=== PATIENT | male | born 1980 | race Caucasian/White ===

== ENCOUNTER 2016-07-13 16:21 | Emergency (ER) | payer BC ==
[~2016-07-13] VITALS: Ht 175.3 cm; Wt 72.6 kg
[2016-07-13 17:52] VITALS: BP 154/99
--- NOTE | 2016-07-13 18:20 | PHYS DOC ---
Past Medical History Past Medical History: Other Additional Past Medical Histor: ED, neuropathy, manic bipolar Past Surgical History: Other Additional Past Surgical Histo: hernia surgery, vasectomy, colonoscopy, Alcohol Use: Occasionally Drug Use: Amphetamine, Benzodiazepine, Cocaine, Methamphetamine Adult General Chief Complaint Chief Complaint: OVERDOSE HPI HPI Patient is a 36 year old male who presents after snorting [address] [employer] methamphetamines last night and today. He says that he bought from a dealer, and it burned his nostril and throat when he snorted it, much more then snorting methamphetamines typically does for him. He reports feeling pretty jittery, and weird. He says that he was kind of "out of it" earlier. He denies chest pain or shortness of breath. He wants to know exactly what he snorted or what it may have been cut with. He denies any other acute drug use. Review of Systems Review of Systems Constitutional: Denies fever or chills. Forced feeling anxious and jittery and "weird". Eyes: Denies change in visual acuity, redness, or eye pain HENT: Denies nasal congestion or sore throat Respiratory: Denies cough or shortness of breath Cardiovascular: Chest pain or palpitations. GI: Denies abdominal pain, nausea, vomiting, bloody stools or diarrhea : Denies dysuria or hematuria Musculoskeletal: Denies back pain or joint pain Integument: Denies rash or skin lesions Neurologic: Denies headache, focal weakness or sensory changes Psych: Reports anxiety. Denies hallucinations. Allergies Allergies Allergies Coded Allergies Type Severity Reaction Last Updated Verified trazodone Allergy Severe palpitation 07/13/16 Yes sucralfate Allergy Mild rash 07/13/16 Yes Physical Exam Physical Exam Constitutional: Well developed, well nourished, no acute distress, non-toxic appearance. HENT: Normocephalic, atraumatic, bilateral external ears normal, oropharynx moist, no oral exudates, nose normal. Eyes: PERRLA, EOMI, conjunctiva normal, no discharge. Neck: Normal range of motion, no tenderness, supple, no stridor. Cardiovascular:Heart rate regular rhythm, no murmur Lungs & Thorax: Bilateral breath sounds clear to auscultation Abdomen: Bowel sounds normal, soft, no tenderness, no masses, no pulsatile masses. Skin: Warm, dry, no erythema, no rash. Back: No tenderness, no CVA tenderness. Extremities: No tenderness, no cyanosis, no clubbing, ROM intact, no edema. Neurologic: Alert and oriented X 3, normal motor function, normal sensory function, no focal deficits noted. Psychologic: Affect normal. Appears anxious. Current Patient Data Vital Signs Vital Signs Date Time Temp Pulse Resp B/P Pulse Ox O2 Delivery O2 Flow Rate FiO2 07/13/16 17:52 91 16 154/99 99 Room Air 07/13/16 16:28 98.0 98.0 EKG EKG [] Radiology/Procedures Radiology/Procedures [] Course & Med Decision Making Course & Med Decision Making Pertinent Labs and Imaging studies reviewed. (See chart for details) Slightly tachycardic but vitals are otherwise stable. He is alert and oriented and not hallucinating or psychotic. He looks well otherwise. I informed the patient there is no way for me to know if his drugs were cut with any household products or anything else of this nature. Cheap street drugs or often cut with other drugs, I informed the patient of this. He is stable and looks well otherwise. I advised he stop using drugs, and told him that he should feel back to normal by tomorrow morning. Return precautions were discussed and all questions were answered prior to discharge. Dragon Disclaimer Dragon Disclaimer This electronic medical record was generated, in whole or in part, using a voice recognition dictation system. Departure Departure Impression: Primary Impression: Methamphetamine abuse Disposition: HOME, SELF-CARE Condition: STABLE Referrals: NO PCP (PCP) Patient Instructions: Methamphetamine Abuse, Complications Additional Instructions: Stop using street drugs. He continues and saline nasal spray or in any particular gauge her nose out to help with the burning. Take Tylenol and ibuprofen as needed for pain. Drink lots of fluids and try to get some rest tonight. You should be feeling back to normal by tomorrow. YANE MOSQUERA MD Jul 13, 2016 18:20
== END 2016-07-13 18:49 | disposition home or self-care (01) ==
LOC: ER 16:21
DX: F15.10 Other stimulant abuse, uncomplicated (principal); G62.9 Polyneuropathy, unspecified; F31.9 Bipolar disorder, unspecified; F14.10 Cocaine abuse, uncomplicated; F19.10 Other psychoactive substance abuse, uncomplicated; Z98.52 Vasectomy status; Z88.8 Allergy status to other drugs, medicaments and biological substances
CPT/HCPCS: 99281